=== PATIENT | female | born 1965 | race Caucasian/White ===

== ENCOUNTER 2017-07-30 11:24 | Day surgery (SDC) | payer BC ==
[2017-07-30] MEDS ORDERED: MIDAZOLAM 2 MG/2 ML SOL ONE (11:25)
[2017-07-30] MEDS ORDERED: LIDOCAINE HCL 1% MPF SOL ONE (11:56)
[2017-07-30 11:58] VITALS: RESP 16; O2SAT 98
[2017-07-30 13:19] VITALS: BP 124/79; PULSE 65; TEMP 97.8
== END 2017-07-30 13:40 | disposition home or self-care (01) ==
LOC: SURG 11:24
PROVIDERS: ATTEND Orthopaedic Surgery
DX: M65.311 Trigger thumb, right thumb (principal)
CPT/HCPCS: 26055; J2001; J2250; A6402

== ENCOUNTER 2018-02-24 08:50 | Emergency (ER) | payer BC ==
[2018-02-24] MEDS ORDERED: KETOROLAC TROMETHAMINE 30 MG/ML SOL IV ONE ×2 (09:57)
[2018-02-24] MEDS ORDERED: LORAZEPAM 0.5 MG TAB PO ONE (09:57)
[2018-02-24] MEDS ORDERED: LORAZEPAM 2 MG/ML 10ML MDV 2 MG/ML VIAL IV PRN (09:57)
[2018-02-24] MEDS ORDERED: SODIUM CHLORIDE 0.9% 500 ML 500 ML IV ONE (10:01)
[2018-02-24] MEDS ORDERED: ASPIRIN 81 MG CHEWABLE CTB PO ONE (10:02)
[2018-02-24] MEDS ORDERED: LORAZEPAM 0.5 MG TAB ONE (10:07)
[2018-02-24] MEDS ORDERED: KETOROLAC TROMETHAMINE 30 MG/ML SOL ONE (10:08)
[2018-02-24] MEDS ORDERED: ASPIRIN 81 MG CHEWABLE CTB ONE ×2 (10:17→10:18)
[2018-02-24] MEDS ORDERED: ALBUTEROL/IPRATROPIUM 1 VIAL SOL INH ONE (10:18)
[2018-02-24] MEDS ORDERED: ALBUTEROL/IPRATROPIUM 1 VIAL SOL ONE (10:19)
[2018-02-24 10:44] VITALS: O2SAT 100
[2018-02-24 10:55] LABS: HEMATOCRIT 40 % (35-47); HEMOGLOBIN 13.8 gm/dl (12.0-15.5); MEAN CORPUSCULAR HEMOGLOBIN 31.1 pg (27.0-32.0); MEAN CORPUSCULAR HGB CONC 34.4 gm/dl (32.0-36.0); MEAN CORPUSCULAR VOLUME 90 fL (81-99)
[2018-02-24 11:03] LABS: ALBUMIN 3.9 gm/dl (3.4-5.0); ALKALINE PHOSPHATASE 54 IU/L (46-116); ALT 21 IU/L (14-63); AST 11 IU/L (15-37); BILIRUBIN,TOTAL 0.4 mg/dl (0.2-1.0); BLOOD UREA NITROGEN 12 mg/dl (7-18); CALCIUM 9.1 mg/dl (8.5-10.1); CARBON DIOXIDE 27.8 mEq/L (21-32); CHLORIDE 104 mMol/L (98-107); CREATININE 0.71 mg/dl (0.60-1.00); GLOM FILT RATE 86 mL/min (>60); GLUCOSE 103 mg/dl (74-106); POTASSIUM 3.6 mMol/L (3.5-5.1); SODIUM 141 mMol/L (136-145); TROP I < 0.017 ng/ml (0.000-0.056)
[2018-02-24 11:10] LABS: BAND NEUTROPHILS % (MANUAL) 0 %; BASOPHILS % (MANUAL) 0 % (0-3); EOSINOPHILS % (MANUAL) 0 % (0-9); LYMPHOCYTES % (MANUAL) 21 % (10-50); MONOCYTES % (MANUAL) 5 % (0-12); NEUTROPHILS % (MANUAL) 74 % (37-80)
[2018-02-24 11:11] LABS: PLATELET MORPHOLOGY COMMENT ADEQUATE
[2018-02-24] MEDS ORDERED: AZITHROMYCIN 250 MG TAB PO ONE (11:31)
[2018-02-24] MEDS ORDERED: AZITHROMYCIN 250 MG TAB ONE (12:07)
[2018-02-24 12:13] VITALS: BP 126/78; PULSE 74; RESP 20; TEMP 97.2
== END 2018-02-24 13:15 | disposition home or self-care (01) ==
LOC: ED 08:50
DX: J45.909 Unspecified asthma, uncomplicated (principal); F41.9 Anxiety disorder, unspecified; S22.31XD Fracture of one rib, right side, subsequent encounter for fracture with routine healing
CPT/HCPCS: 36415; 71101; 71275; 80053; 83880; 84484; 85007; 85027; 85378; 93005; 96365; 96374; 99284; 99285; J1885; Q9967; A9270-GY

== ENCOUNTER 2018-03-05 07:25 | Emergency (ER) | payer BC ==
[2018-03-05 07:30] VITALS: TEMP 97.4
[2018-03-05] MEDS ORDERED: KETOROLAC TROMETHAMINE 30 MG/ML SOL IM ONE (07:42)
[2018-03-05] MEDS ORDERED: KETOROLAC TROMETHAMINE 30 MG/ML SOL ONE (07:43)
[2018-03-05] MEDS ORDERED: FENTANYL 100MCG/2ML SOL ONE (08:36)
[2018-03-05] MEDS ORDERED: HYDROMORPHONE HCL 2 MG/ML SOL IM ONE (08:37)
[2018-03-05] MEDS ORDERED: HYDROMORPHONE 1 MG/ML SYRINGE ONE (08:39)
[2018-03-05] MEDS ORDERED: HYDROMORPHONE 1 MG/ML SYRINGE IV ONE (08:45)
[2018-03-05] MEDS ORDERED: HYDROMORPHONE 1 MG/ML SYRINGE IM ONE (08:45)
[2018-03-05 09:36] VITALS: O2SAT 97
[2018-03-05 09:38] VITALS: BP 154/90; PULSE 74; RESP 20
[2018-03-05] MEDS ORDERED: [UNRECOGNIZED DRUG - OTHER] ID ONE ×2 (11:13→11:43)
[2018-03-05] MEDS ORDERED: DIPHENHYDRAMINE 25 MG CAP PO ONE (11:57)
[2018-03-05] MEDS ORDERED: DIPHENHYDRAMINE 25 MG CAP ONE (12:03)
[2018-03-05] MEDS ORDERED: LIDOCAINE 5% PATCH 1 PATCH TDM TOP ONE (13:50)
== END 2018-03-05 13:58 | disposition home or self-care (01) ==
LOC: ED 07:25
DX: F41.9 Anxiety disorder, unspecified (principal); S22.32XA Fracture of one rib, left side, initial encounter for closed fracture
CPT/HCPCS: 71100; 71250; 96372; 99284; J1885; J3010; A9270-GY; J1170